=== PATIENT | female | born 1965 ===

== ENCOUNTER 2024-05-12 08:03 | Day surgery (SDC) | payer BC ==
[2024-05-12] VITALS (14 sets, daily range): BP systolic 111–141; BP diastolic 55–89; PULSE 65–75; TEMP 97.1
[~2024-05-12] VITALS: Ht 152.4 cm; Wt 94.8 kg
[2024-05-12] MEDS ORDERED: LIPITOR 40MG TA40 MG PO (09:07)
[2024-05-12] MEDS ORDERED: SYNTHROID0.137 MG PO (09:08)
[2024-05-12] MEDS ORDERED: LEXAPRO20 MG PO (09:08)
[2024-05-12] MEDS ORDERED: ASPIRIN 81M81 MG/TA2 PO (09:09)
[2024-05-12] MEDS ORDERED: TOPROL XL 25MG25 MG PO (09:10)
[2024-05-12] MEDS ORDERED: NITROSTAT0.4 MG/TAB SL (09:11)
[2024-05-12 09:23] LABS: HEMATOCRIT 37.4 % (37.0-47.0); HEMOGLOBIN 12.4 g/dl (12.5-16.0); MEAN CELL VOLUME 91 fl (80.0-100.0); MEAN CORPUSCULAR HEMOGLOBIN 30 pg (27-31); MEAN CORPUSCULAR HGB CONC 33 g/dl (33.0-37.0); MEAN PLATELET VOLUME 10.7 fl (7.4-10.4); PLATELET COUNT 276 K/mm3 (130-400); RED BLOOD COUNT 4.11 M/mm3 (4.10-5.30); REDCELL DISTRIBUTION WIDTH-CV 12.1 % (11.5-14.5)
[2024-05-12] MEDS ORDERED: 1/2 NS 1,000 ML IV SCH ×2 (09:46→12:15)
[2024-05-12 09:49] LABS: CALCIUM 9.6 mg/dL (8.4-10.2); CREATININE, serum 0.72 mg/dL (0.57-1.11); POTASSIUM 3.5 mEq/L (3.5-4.5)
[2024-05-12 09:54] LABS: INR 1.1 (0.8-3.0); PROTHROMBIN TIME 11.8 SECONDS (9.7-12.8)
[2024-05-12 09:57] LABS: PARTIAL THROMBOPLASTIN TIME 34.3 SECONDS (26.0-37.0)
--- NOTE | 2024-05-12 10:43 | NUR ---
Patient to procedure,report to TAM Puckett.
--- NOTE | 2024-05-12 11:05 | NUR ---
SEE MERGE FOR PROCEDURE DOCUMENTATION
[2024-05-12] MEDS ORDERED: Nitroglycerin 2% Topical Oint 1 GM UD TD SCH (11:07)
[2024-05-12] MEDS ORDERED: Heparin 1,000 UNITS/ML 10 ML Multi-Dose VIAL IV SCH (11:25)
[2024-05-12] MEDS ORDERED: fentaNYL 50 MCG/ML 2 ML VIAL IV SCH (11:26)
[2024-05-12] MEDS ORDERED: Midazolam 2 MG/2 ML VIAL IV SCH (11:28)
[2024-05-12] MEDS ORDERED: niCARdipine (Cath Lab) 100 MCG/ML 10 ML VIAL INCOR SCH (11:31)
[2024-05-12] MEDS ORDERED: Iohexol 350 - 100 ML VIAL IA ONE (11:35)
--- NOTE | 2024-05-12 11:59 | NUR ---
PATIENT ALERT AND ORIENTED, VSS. PATIENT DENIES PAIN OR NAUSEA. RIGHT RADIAL SITE CDI. PATIENT TRANSFERRED INDEPENDENTLY TO BED AND POSITIONED FOR COMFORT, RIGHT ARM ELEVATED. PATIENT TRANSPORTED TO [facility], FAMILY BROUGHT TO BEDSIDE. BED TO LOWEST POSITION, CALL LIGHT WITHIN REACH, X3 BEDRAILS IN PLACE. VITAL SIGNS TAKEN, REMAINS CDI. TRANSFER OF CARE REPORT TO TAM GORDON.
[2024-05-12] MEDS ORDERED: TIAZAC120 MG PO (13:35)
--- NOTE | 2024-05-12 15:24 | NUR ---
Discharge instructions given to pt.pt verbalizes understanding.Pt escorted out via wheelchair by this nurse.Dressing observed clean,dry,intact,and soft prior to discharge.
== END 2024-05-12 15:49 ==
LOC: COL.CAR 08:03
PROVIDERS: Internal Medicine Cardiovascular Disease
DX: I20.9 Angina pectoris, unspecified (principal); R94.39 Abnormal result of other cardiovascular function study; E78.2 Mixed hyperlipidemia; Z79.899 Other long term (current) drug therapy
CPT/HCPCS: C1769; J1644; J2250; J2404; J3010; Q9967